=== PATIENT | female | born 1995 | race Two or more races ===

== ENCOUNTER 2023-10-13 09:45 | Emergency (ER) | payer OTHER ==
[~2023-10-13] VITALS: Ht 160 cm; Wt 56.7 kg
== END 2023-10-13 11:37 | disposition home or self-care (01) ==
LOC: ER 09:46
DX: A90 Dengue fever [classical dengue] (principal); J00 Acute nasopharyngitis [common cold]; Z88.1 Allergy status to other antibiotic agents; Z88.6 Allergy status to analgesic agent